=== PATIENT | female | born 1990 | race Caucasian/White ===

== ENCOUNTER 2019-08-20 13:48 | Emergency (ER) | payer OTHER ==
[~2019-08-20] VITALS: Ht 157.5 cm; Wt 65.9 kg
[2019-08-20 14:02] VITALS: Ht 157.5 cm; Wt 65.9 kg
[2019-08-20] MEDS ORDERED: NAPROSYN500 MG PO (15:53)
[2019-08-20 16:08] LABS: HCG URINE NEGATIVE (NEGATIVE)
[2019-08-20 16:15] VITALS: BP 126/63
== END 2019-08-20 16:16 | disposition home or self-care (01) ==
LOC: D.ER 13:48
PROVIDERS: Family Medicine
DX: S09.90XA Unspecified injury of head, initial encounter (principal); S01.01XA Laceration without foreign body of scalp, initial encounter; W19.XXXA Unspecified fall, initial encounter; Y93.9 Activity, unspecified; Y92.9 Unspecified place or not applicable